=== PATIENT | female | born 1980 | race Caucasian/White ===

== ENCOUNTER → 2018-07-16 | Outpatient (CLI) | payer OTHER | LOC: FIMAGING 15:27 | PROVIDERS: ATTEND Obstetrics & Gynecology | DX: O09.511 Supervision of elderly primigravida, first trimester (principal); Z3A.13 13 weeks gestation of pregnancy ==

== ENCOUNTER → 2018-09-06 | Outpatient (CLI) | payer OTHER | LOC: FIMAGING 07:24 | PROVIDERS: ATTEND Advanced Practice Midwife | DX: O09.512 Supervision of elderly primigravida, second trimester (principal); O44.42 Low lying placenta NOS or without hemorrhage, second trimester; Z3A.20 20 weeks gestation of pregnancy ==

== ENCOUNTER → 2018-11-06 | Outpatient (CLI) | payer OTHER | LOC: FIMAGING 14:20 | PROVIDERS: ATTEND Advanced Practice Midwife | DX: O09.513 Supervision of elderly primigravida, third trimester (principal); Z3A.29 29 weeks gestation of pregnancy ==

== ENCOUNTER 2019-01-15 00:08 | Inpatient (IN) | payer OTHER ==
[2019-01-15] MEDS ORDERED: MISOPROSTOL 200 MCG TAB ONE (00:33)
[2019-01-15] MEDS ORDERED: TERBUTALINE SULFATE 1 MG/ML VIAL ONE (00:33)
[2019-01-15] MEDS ORDERED: OXYTOCIN 10 UNIT/ML VIAL ONE (00:33)
[2019-01-15] MEDS ORDERED: LIDOCAINE 1% 300 MG/30 ML SDV ONE (00:33)
[2019-01-15] MEDS ORDERED: OLIVE OIL 118 ML BTL MISC ONE (00:33)
[2019-01-15] MEDS ORDERED: AMMONIA AROMATIC 1 EACH AMP IH ONE (00:33)
[2019-01-15] MEDS ORDERED: OXYTOCIN/RINGERS LACTATE 20 UNIT/1,000 ML BAG IV ONE (01:43)
[2019-01-15] MEDS ORDERED: AMMONIA AROMATIC 1 EACH AMP IH PRN (01:50)
[2019-01-15] MEDS ORDERED: OLIVE OIL 118 ML BTL MISC PRN (01:50)
[2019-01-15] MEDS ORDERED: TERBUTALINE SULFATE 1 MG/ML VIAL IV PRN (01:50)
[2019-01-15] MEDS ORDERED: MISOPROSTOL 200 MCG TAB PO PRN (01:50)
[2019-01-15] MEDS ORDERED: IBUPROFEN 600 MG TAB PO PRN (01:50)
[2019-01-15] MEDS ORDERED: EPSOM SALT 454 GM TP PRN (01:50)
[2019-01-15] MEDS ORDERED: OXYTOCIN/RINGERS LACTATE 1,000 ML IV PRN (01:50)
[2019-01-15] MEDS ORDERED: LR 1,000 ML IV PRN (01:50)
[2019-01-15] MEDS ORDERED: LIDOCAINE 1% 300 MG/30 ML SDV SC PRN (01:50)
--- NOTE | 2019-01-15 01:57 | PDGENHP ---
History and Physical History and Physical: Care: [facility] H&P done post delivery due to precipitous delivery HPI: Siobhan Guzman is a 38yo with IUP@39-4 weeks that presents to L&D with complaints of contractions since 1830. she states they have intensified over the past hour. she states she had a gush of fluid @ 2330. She denies any VB. reports +FM EDC: 01/18/19 which is based on Ultrasound at 10 weeks. Her is complicated by: AMA, Rh negative, h/o anxiety, LLP- RESOLVED, abnormal 1hr GTT- 3hr GTT NL Review of Systems: Constitutional: Denies any fever, chills, or fatigue HEENT: denies any visual changes, difficulty swallowing, hearing loss Cardiovascular: Denies any chest pain, palpitations, leg swelling Respiratory: denies any cough, wheezing, or shortness of breathe GI: Denies any nausea, vomiting, diarrhea, constipation : denies any dysuria, urgency, frequency, vaginal bleeding Musculoskeletal: denies any muscle or bone pain Skin: denies any rashes Neuro: denies any headache, seizures, lightheadedness, dizziness, or loss of consciousness Psychiatric: denies any depression, anxiety, or SI/HI thoughts HISTORY: Previous OB history: G1 Past medical history: anxiety Past surgical history: oral surgery, tonsillectomy Social: Denies any alcohol, tobacco, or drug use. - [place]til[place]; works for [employer] Family history: Not relevant Medications: PNV, magnesium Allergies (list reaction): sulfa- rash LABS: Rh: A Negative ABS: Neg Rubella: Immune HbsAg: NR HIV: NR VDRL: NR 1hr: 158- 3hr NL GC: Neg Chlamydia: Neg Pap: Normal GBS: negative BMI: (prepreg) 25 PHYSICAL EXAM: Constitutional: WN, A&Ox3 HEENT: normocephalic atraumatic, supple Skin: Warm, dry, intact Heart: RRR, no murmur Chest: CTA-B Abdomen: Soft, nontender, gravid SVE: 10/100/0 Extremities: trace edema, negative homans sign Neuro: grossly normal Psych: normal affect assessment: FHT baseline 125 +accels, +decels, moderate variability Contractions: toco q 2 Assessment: * 38yo with IUP@ 39-4wks * Active labor * GBS Negative * cat 2 FHR tracing Plan: * anticipate Today's visit was approximately 30 min, of which >50% of visit 20 min, was spent face to face with pt on direct counseling/coordination of care.
--- NOTE | 2019-01-15 02:00 | OBDEL ---
Info Type: Vaginal Presentation at Delivery: Vertex L&D Analgesia/Anesthesia Type: None GBS+: No Indications for Delivery: Spontaneous Labor, SROM Vaginal Delivery - Delivery Provider Delivery Physician/CNM: Patrizia Zheng - Labor and Delivery Onset of Contractions Date: 01/14/19 Onset of Contractions Time: 18:30 Onset of Contractions Type: Spontaneous Rupture of Membranes Date: 01/15/19 Rupture of Membranes Time: 23:30 Rupture of Membranes Type: Spontaneous Amniotic Fluid Color: Clear Dilation Complete Date: 01/15/19 Dilation Complete Time: 00:29 Placenta Delivery Date: 01/15/19 Placenta Delivery Time: 01:07 Total Hours of Labor: 6 Laceration: 2nd Degree Repair: 3-0, Vicryl Vaginal Sponge Count Correct: Yes Vaginal Needle Count Correct: Yes Vaginal Sweep Performed: Yes EBL: 500 Delivery Comment: delivered quickly after arrival to unit. baby to mothers chest. spontaneous cry. brisk bleeding noted post placenta delivery. IM pitocin given. IV then started for IV PP pitocin. clots were evacuated from cervix and vagina. will use methergine if bleeding persists. Will check CBC @0800. Uterus firm and bleeding WNL. Data SOLIS: 01/18/19 Gestational Age: 39 week(s) and 4 day(s) Dalal Delivery Date: 01/15/19 Delivery Time: 00:49 Sex of : Female Score (1 Min): 8 Score (5 Min): 9 ICD10 Worksheet Patient Problems: Problems Problem Status Onset hemorrhage Acute (spontaneous vaginal delivery) Acute Second degree perineal laceration during delivery Acute - ICD10 Problem Qualifiers (1) (spontaneous vaginal delivery) (2) Second degree perineal laceration during delivery (3) hemorrhage
[2019-01-15] MEDS ORDERED: HYDROCORTISONE 0.5% CREAM TP PRN (02:02)
[2019-01-15] MEDS ORDERED: SIMETHICONE 80 MG TAB CHEW PO PRN (02:02)
[2019-01-15 02:05] LABS: PLATELET COUNT 301 10^3/uL (150-400)
[2019-01-15] MEDS: ACETAMINOPHEN 325 MG TAB PO PRN ×4 (02:35→20:03)
[2019-01-15] MEDS: IBUPROFEN 600 MG TAB PO PRN ×3 (08:14→20:04)
[2019-01-15] MEDS: DOCUSATE SODIUM 100 MG CAP PO PRN ×2 (14:09→20:04)
[2019-01-16] MEDS: IBUPROFEN 600 MG TAB PO PRN ×4 (01:38→22:45)
[2019-01-16] MEDS: ACETAMINOPHEN 325 MG TAB PO PRN ×4 (01:38→22:45)
[2019-01-16] MEDS: DOCUSATE SODIUM 100 MG CAP PO PRN ×2 (08:39→22:45)
--- NOTE | 2019-01-16 09:41 | OBPP ---
Progress Note Assessment/Plan: Assessment: 1. First PP day 2. Breast feeding mom 3. hemorrhoids Plan: 1. d/c home tomorrow 2. support 01/16/19 09:38 Subjective/ Course: 01/16/19 09:40 VSS, pt reports pain well controlled with PO medications, voiding without difficulty, bleeding wnl. Objective: 01/16/19 01:35 Patient ABO/Rh A NEGATIVE 01/15/19 03:04 Temp Pulse Resp BP Pulse Ox 36.4 C 74 16 96/59 L 95 01/16/19 08:00 01/16/19 08:00 01/16/19 08:00 01/16/19 08:00 01/16/19 08:00 VSS, afebrile Uterine Position/Fundal Height: At Umbilicus Uterine Tone: Firm
[2019-01-17] MEDS: ACETAMINOPHEN 325 MG TAB PO PRN ×3 (05:15→17:14)
[2019-01-17] MEDS: IBUPROFEN 600 MG TAB PO PRN ×3 (05:15→17:13)
[2019-01-17] MEDS ORDERED: FERROUS SULFATE 325 MG TAB PO SCH (09:45)
[2019-01-17 10:14] VITALS: BP 101/62
--- NOTE | 2019-01-17 10:15 | OBGCSDC ---
General Delivery Information - General Info : 1 Para: 1 Abortions: 0 Type: Vaginal L&D Analgesia/Anesthesia Type: Nitrous Admission Date: 01/15/19 Labs: Patient ABO/Rh A NEGATIVE 01/15/19 03:04 Hct 34.3 % (38.0-47.0) L 01/16/19 01:35 Temp Pulse Resp BP Pulse Ox 01/16/19 19:36 37.1 C 94 14 99/64 L 99 - Hospital Course : 01/16/19 09:40 VSS, pt reports pain well controlled with PO medications, voiding without difficulty, bleeding wnl. 01/17/19 10:12 S) Pt doing well, reports min pain and bleeding. she is ambulating and voiding without difficulty. She is . She desires discharge home today, baby is staying due to elevated bilirubin level, so will discharge to rooming- in status. O) VSS, afebrile constitutional: WNWF, A&Ox3 HEENT: normocephalic, atraumatic, supple Heart: RRR, No murmur Chest: CTA-B Abdomen: Soft, nontender Uterus: Firm at U-2 Lochia: Minimal rubra Perineum: Intact, healing well Extremities: Trace edema, and negative Estrellita's sign Neuro: Grossly normal A) 38 year-old P1 S/P PPD#2 Anemia P) Discharge home today to rooming-in status Continue Daily ferrous sulfate Pelvic rest x6wks Discussed danger signs (infection, preeclampsia, depression, heavy bleeding, etc) RTO in 2/4/6 weeks Vaginal - Delivery Provider Delivery Physician/CNM: Patrizia Zheng - Diagnosis Labor: Spontaneous Rupture of Membranes Type: Spontaneous Amniotic Fluid Color: Clear Laceration: 2nd Degree Repair: 3-0, Vicryl - Delivery EBL: 500 Clute Data SOLIS: 01/18/19 Gestational Age: 39 week(s) and 6 day(s) Dalal Delivery Date: 01/15/19 Delivery Time: 00:49 Sex of : Female Cl[place] Weight (gm): 3715 g Score (1 Min): 8 Score (5 Min): 9 Discharge Information - Discharge Information Prescriptions: Ibuprofen [Motrin (*)] 600 mg PO Q6HRS PRN #40 tab PRN Reason: Pain, Mild Able To Take Po Docusate Sodium [Colace 100 MG (*)] 100 mg PO BID PRN #60 cap PRN Reason: Constipation Ferrous Sulfate [Ferrous Sulf 325 MG (*)] 325 mg PO DAILY #60 tab Condition: Good
[2019-01-17] MEDS: DOCUSATE SODIUM 100 MG CAP PO PRN ×2 (11:19→18:29)
== END 2019-01-17 18:50 | disposition home or self-care (01) | DRG 806 ==
LOC: FLD 00:08 → OBSVTOIN 01:51 → FOB 03:54
PROVIDERS: ADMIT Advanced Practice Midwife; ATTEND Advanced Practice Midwife
DX: O70.1 Second degree perineal laceration during delivery (principal); O72.1 Other immediate postpartum hemorrhage; O22.43 Hemorrhoids in pregnancy, third trimester; O26.893 Other specified pregnancy related conditions, third trimester; Z67.91 Unspecified blood type, Rh negative; Z3A.39 39 weeks gestation of pregnancy; Z37.0 Single live birth
CPT/HCPCS: J2590; J3105